=== PATIENT | male | born 1970 | race Hispanic/Latino ===

== ENCOUNTER 2019-04-29 11:12 | Outpatient (CLI) | payer OTHER ==
--- NOTE | 2019-04-29 12:58 | ULT ---
BILATERAL TESTICULAR ULTRASOUND WITH GRAYSCALE AND COLORFLOW AND SPECTRAL DOPPLER IMAGING: HISTORY: A 48-year-old male with a mobile lump in the right scrotum. FINDINGS: The right testis measures 4 x 2 x 2.8 cm and the left testis measures 1.8 x 3.4 x 3.1 cm. No testicul ar mass or microlithiasis is seen on either side. The epididymides have a normal appearance and demonstrate symmetric flow. No varicoceles or hydrocele s are seen. IMPRESSION: Normal examination. POS: [facility]
== END 2019-04-29 11:13 | disposition home or self-care (01) ==
LOC: BICULT 11:12
PROVIDERS: ATTEND Family Medicine
DX: N50.89 Other specified disorders of the male genital organs (principal)
CPT/HCPCS: 76870; 93976